=== PATIENT | female | born 1940 | race Caucasian/White ===

== ENCOUNTER → 2017-02-19 | Day surgery (SDC) | payer MEDICARE ==
[~2017-02-19] VITALS: Ht 162.6 cm; Wt 90.7 kg
[~2017-02-19] MED LIST: ANAS1TAB7 PO; ASPI-973 PO; CALC-140 PO; CITA40TA13 PO; GABA300C PO; LISI-567 PO; LORA0.5T PO; Sodium Chloride LOK Flush 10 mL Syringe IV PRN; fentaNYL-PF 50 mCg/mL 2 mL Inj IVPUSH PRN
[2017-02-19 07:39] VITALS: BP 130/75; PULSE 63; RESP 16; O2SAT 98
[2017-02-19] MEDS: 0.9% Sodium Chloride 1,000 ML IV SCH ×2 (08:13→08:19)
[2017-02-19 08:22] VITALS: BP 123/62; PULSE 58; RESP 14; O2SAT 94
[2017-02-19 08:33] VITALS: BP 114/68; PULSE 53; RESP 14; O2SAT 95
[2017-02-19 08:36] VITALS: BP 113/63; PULSE 55; RESP 16; O2SAT 95
--- NOTE | 2017-02-19 09:07 | ENDO ---
[address] [address] ENDOSCOPY PROCEDURE PATIENT: GIACOMO ADRIAN : 1940 MR#: [id number] ADMIT: 02/19/2017 JOB ID: [id number] DATE: 02/19/2017 PROCEDURE: Colonoscopy. INDICATION: Chronic diarrhea. ASA CLASSIFICATION: 2. MALLAMPATI SCORE: 2. MEDICATIONS: Versed 4 mg, fentanyl 100 mcg. INSTRUMENT USED: PCF-H180-AL. PREPARATION QUALITY: Fair. PROCEDURE DETAILS: After informed consent was obtained, the patient was brought into the GI suite, where she was placed on oxygen via nasal cannula and monitored with continuous pulse oximeter, telemetry, and blood pressure monitoring. A time-out was performed. Then, she was placed in a lateral position and medications were administered. A digital rectal exam was performed which was unremarkable. The colonoscope was then inserted into the rectum and advanced under direct visualization to the ileocolic anastomosis. At the ileocolic anastomosis, daysi were noted. The colonoscope was then withdrawn as the mucosa and lumen were examined. Random biopsies were obtained throughout the colon. FINDINGS: 1. Retroflexed views in the rectum were unremarkable. 2. Scattered diverticula were seen throughout the left side of the colon and small internal hemorrhoids were noted on retroflexion. IMPRESSION: 1. Ileocolic anastomosis. 2. Left-sided diverticulosis. 3. Small internal hemorrhoids. RECOMMENDATIONS: 1. Await biopsy results. 2. Follow up in GI clinic. COMPLICATIONS: None. ESTIMATED BLOOD LOSS: Less than 5 mL.
--- NOTE | 2017-02-21 18:12 | PATH ---
SURGICAL PATHOLOGY Attending Physician:Teo Pfeiffer CASE STATUS: Signed Out PATIENT NAME: GIACOMO ADRIAN PID: [id number] : 1940 DATE COLLECTED:02/19/2017 18:48 SPECIMEN: Colon, Biopsy CLINICAL HISTORY: 1). RANDOM COLON BIOPSY FINAL DIAGNOSIS: Random Colon, Biopsies: Lymphocytic colitis. Negative for granulomas, dysplasia and malignancy. ICD10: K52.89 GROSS DESCRIPTION: The specimen is received in one formalin filled container labeled with the patient's name, sublabeled "random colon" and consists of are multiple portions of tissue which aggregate to 0.6 x 0.6 x 0.3 CM. The specimen is entirely submitted in one cassette. 02/19/2017DC ICD-9 CODES: CPT CODES: 1: 30357 Electronically Signed Out Cely Sanders MD [facility] Pathology [facility] [address], [place] [address] Technical component performed at [facility], [facility] [address], [address]
== END | disposition home or self-care (01) ==
LOC: END 07:21
PROVIDERS: ATTEND Internal Medicine Gastroenterology
DX: K52.832 Lymphocytic colitis (principal); K57.30 Diverticulosis of large intestine without perforation or abscess without bleeding; K64.8 Other hemorrhoids; I10 Essential (primary) hypertension; E78.00 Pure hypercholesterolemia, unspecified; F41.8 Other specified anxiety disorders; K21.9 Gastro-esophageal reflux disease without esophagitis; Z85.038 Personal history of other malignant neoplasm of large intestine; Z85.3 Personal history of malignant neoplasm of breast; Z79.82 Long term (current) use of aspirin
CPT/HCPCS: 45380; 88305; G0500; J2250; J3010; J7030